=== PATIENT | female | born 2000 | race Caucasian/White ===

== ENCOUNTER 2024-10-29 17:28 | Emergency (ER) | payer OTHER ==
[~2024-10-29] VITALS: Ht 160 cm; Wt 58.0 kg
[~2024-10-29 17:28] MED LIST: AUGMENTIN 875-1 EACH PO
[2024-10-29] MEDS ORDERED: SODIUM CHLORIDE 0.9% 500 ML IV PRN (20:30)
[2024-10-29 20:39] LABS: BASOPHILS 0.2 % (0.1-1.2); EOSINOPHILS 0 % (0.7-5.8); LYMPHOCYTES 5.2 % (19.3-51.7); MCH 30.1 PG (25.6-32.2); MCHC 33.9 g/dL (32.2-35.5); MCV 88.7 fL (79.4-94.8); MONOCYTES 12.1 % (4.7-12.5); NEUTROPHILS 82.3 % (34.0-71.1); RBC 3.82 M/uL (3.93-5.22)
[2024-10-29 21:22] LABS: ALT (SGPT) 13.0 U/L (14-59); AST (SGOT) 12.0 U/L (15-37); GLOMERULAR FILTRATION RATE,EST 132.0 mL/min (>60); PROTEIN, TOTAL 6.5 g/dL (6.4-8.2); UREA NITROGEN 8.0 mg/dL (7-18)
[2024-10-29 22:21] LABS: BLOOD/HGB, URINE NEGATIVE (Negative); KETONE, URINE >=80 (Negative); LEUK ESTERASE, URINE NEGATIVE (negative); NITRITE, URINE NEGATIVE (negative)
[2024-10-29 22:39] LABS: INFLUENZA B NAA NEGATIVE (NEGATIVE); RESPIRATORY SYNCYTIAL VIR NAA NEGATIVE (NEGATIVE)
[2024-10-29] MEDS ORDERED: CYCLOBENZAPRINE10 MG PO (23:09)
[2024-10-29] MEDS ORDERED: ONDANSETRON ODT8 MG PO (23:09)
[2024-10-29] MEDS ORDERED: ONDANSETRON 4 MG HOME.PACK SL ONE (23:15)
[2024-10-29 23:41] VITALS: BP 92/55
[2024-10-29] MEDS ORDERED: ACETAMINOPHEN 325 MG TAB PO ONE (23:45)
== END 2024-10-29 23:41 | disposition home or self-care (01) ==
LOC: ED 17:28
PROVIDERS: Family Medicine
DX: O98.511 Other viral diseases complicating pregnancy, first trimester (principal); U07.1 COVID-19; Z3A.09 9 weeks gestation of pregnancy; Z88.1 Allergy status to other antibiotic agents
CPT/HCPCS: 36415; 80053; 81003; 84702; 85025; 87502; 96361; 96374; 99284-25; A9270; J2405; J7040; U0002